=== PATIENT | female | born 1940 | race Caucasian/White ===

== ENCOUNTER 2023-02-20 09:45 | Outpatient (OUT) | payer MEDICARE, SELFPAY ==
--- NOTE | 2023-02-20 09:57 | MM_ITS ---
Patient: MASOOD CORDON Exam Date: 02/20/2023 : 1940 Gender:F Ordering : DR SERENE GIRARD Admission #: [id number] Family : Order #: [id number] CLICK HERE TO VIEW EXAM RADIOLOGY REPORT PROCEDURE: MM TOMOSYNTHESIS DIAGNOSTIC BI, 02/20/2023, 09:49 US BREAST RT LIMITED, 02/20/2023, 10:54 COMPARISON: MG MAMM SCREEN CARTER W CAD, 08/15/2020. INDICATIONS: Mass Of Nipple N63.0 Calculator Name NCI Breast Cancer Risk Assessment Tool 5 Year Breast Cancer Risk 6.60% Lifetime Breast Cancer Risk 10.10% Personal Breast Cancer No Personal Ovarian Cancer No Treatments None Family Cancers Sister with breast cancer at age 58; Daughter with breast cancer at age 42; Daughter with breast cancer at age 58; Father with bladder cancer at age 85. LOCATION: [facility] BREAST COMPOSITION: Scattered areas fibroglandular density. FINDINGS: DIAGNOSTIC CATEGORY 0--INCOMPLETE: NEED ADDITIONAL IMAGING EVALUATION. The breasts are stable in size and overall fibroglandular configuration.Scattered benign-appearing nodules are present. Scattered benign-appearing calcifications are present. Scattered benign-appearing lymph nodes are present. RIGHT BREAST: Inverted nipple with a small increase in retroareolar soft tissue identified on the MLO projection. Ultrasound demonstrates an inverted nipple with no focal mass. In light of the patient's new nipple inversion and itching, consideration should be given to inflammatory carcinoma. Follow-up recommended. Punch biopsy should be considered LEFT BREAST: No significant suspicious finding. RECOMMENDATIONS: BREAST MRI: BILATERAL BREASTS PLEASE NOTE: A NORMAL MAMMOGRAM DOES NOT EXCLUDE THE POSSIBILITY OF BREAST CANCER. A CLINICALLY SUSPICIOUS PALPABLE LUMP SHOULD BE BIOPSIED. Dictated by: Lincoln Bullock MD on 02/20/2023 at 11:18 Approved by: Lincoln Bullock MD on 02/20/2023 at 11:21
== END 2023-02-20 09:46 | disposition home or self-care (01) ==
LOC: MAMMO 09:45
PROVIDERS: PCP Nurse Practitioner Family; Visit Provider Nurse Practitioner Family
DX: N63.0 Unspecified lump in unspecified breast (principal); N64.53 Retraction of nipple; Z80.3 Family history of malignant neoplasm of breast; R92.8 Other abnormal and inconclusive findings on diagnostic imaging of breast
CPT/HCPCS: 76642; 77066; G0279